=== PATIENT | female | born 1940 | race Caucasian/White ===

== ENCOUNTER → 2017-03-26 | Outpatient (CLI) | payer MEDICARE, BC | LOC: MC.RAD 14:40 | DX: Z12.31 Encounter for screening mammogram for malignant neoplasm of breast (principal) ==

== ENCOUNTER → 2018-08-20 | Outpatient (CLI) | payer MEDICARE, BC | LOC: MC.RAD 10:37 | DX: Z12.31 Encounter for screening mammogram for malignant neoplasm of breast (principal) ==

== ENCOUNTER → 2020-01-27 | Outpatient (CLI) | payer MEDICARE | LOC: MC.RAD 07:45 | DX: Z12.31 Encounter for screening mammogram for malignant neoplasm of breast (principal) ==

== ENCOUNTER → 2021-03-06 | Outpatient (CLI) | payer MEDICARE | LOC: MC.RAD 11:15 | DX: Z12.31 Encounter for screening mammogram for malignant neoplasm of breast (principal) ==

== ENCOUNTER → 2022-08-27 | Outpatient (CLI) | payer MEDICARE, OTHER | LOC: MC.RAD 07:08 | DX: Z12.31 Encounter for screening mammogram for malignant neoplasm of breast (principal) ==